=== PATIENT | female | born 1945 | race Caucasian/White ===

== ENCOUNTER → 2018-07-04 | Outpatient (CLI) | payer OTHER ==
[~2018-07-04] VITALS: Ht 144.8 cm; Wt 60.5 kg
[~2018-07-04] MED LIST: ALPR-412 PO; FLUT0.15 INTNAS; HYDR12.55 PO; MELO7.5T5 PO; MISCCAP80 PO; MULT-506 PO; PRLSR20 PO; SENNTAB23 PO
--- NOTE | 2018-07-04 13:29 | PAT Medication Instructions ---
Service Date Jul 04, 2018. Current Home Medication List Alprazolam (Alprazolam), 1 TAB PO TID PRN for RN Fluticasone Propionate (Nasal) (Flonase Allergy Relief), 2 SPRAYS INTNAS PRN Hydrochlorothiazide (Hydrochlorothiazide), 1 TAB PO QAM Meloxicam (Mobic), 15 MG PO QAM Multivitamin (Multivitamin), 1 TAB PO QAM Omeprazole (Prilosec), 20 MG PO QAM Probiotic Product (Probiotic), 1 TAB PO QAM Sennosides-Docusate Sodium (Stool Softener), 1 TAB PO QAM Medication Instructions For Your Scheduled Surgery -Instructions per surgeon: Meloxicam (Mobic), 15 MG PO QAM - Hold the following medications the morning of surgery: Hydrochlorothiazide (Hydrochlorothiazide), 1 TAB PO QAM Multivitamin (Multivitamin), 1 TAB PO QAM Probiotic Product (Probiotic), 1 TAB PO QAM Sennosides-Docusate Sodium (Stool Softener), 1 TAB PO QAM - Take the following medications the morning of surgery with a sip of water: Alprazolam (Alprazolam), 1 TAB PO TID PRN (if needed) Fluticasone Propionate (Nasal) (Flonase Allergy Relief), 2 SPRAYS INTNAS PRN ( if needed) Omeprazole (Prilosec), 20 MG PO QAM - Take the following medications as scheduled the night before surgery: Alprazolam (Alprazolam), 1 TAB PO TID PRN (if needed) Fluticasone Propionate (Nasal) (Flonase Allergy Relief), 2 SPRAYS INTNAS PRN ( if needed) If you have any questions please call us at [phone] or [phone] or [phone]
[2018-07-04 14:22] VITALS: Ht 144.8 cm; Wt 60.5 kg
[2018-07-04 14:34] LABS: BASO % 1.1 %; BASO ABS # 0.06 K/uL (0-0.2); EOS ABS # 0.16 K/uL (0-0.5); HEMATOCRIT 40.3 % (37-47); HEMOGLOBIN 13.5 g/dL (12.0-16.0); IG# 0.01 K/uL (0.00-0.02); LYMPH % 23.9 %; LYMPH ABS # 1.26 K/uL (1.2-3.4); MEAN CELL VOLUME 80.4 fL (80-100); MEAN CORPUSCULAR HEMOGLOBIN 26.9 pg (25-34); MEAN CORPUSCULAR HGB CONC 33.5 g/dl (32-36); MONO ABS # 0.58 K/uL (0.11-0.59); NEUT % 60.8 %; NEUT ABS # 3.21 K/uL (1.4-6.5); PLATELET COUNT 328 K/uL (130-400); RED CELL DISTRIBUTION WIDTH CV 16.1 % (11.5-14.5); RED CELL DISTRIBUTION WIDTH SD 46.9 fL (36.4-46.3); WHITE BLOOD COUNT 5.28 K/uL (4.8-10.8)
[2018-07-04 14:50] LABS: PTT PATIENT 26.4 SECONDS (21.0-31.0)
[2018-07-04 14:51] LABS: HEMOGLOBIN A1C 6.5 % (4.5-5.6)
[2018-07-04 14:56] LABS: ALBUMIN 3.8 gm/dl (3.4-5.0); CALCIUM 9.2 mg/dl (8.5-10.1); CREATININE 0.88 mg/dl (0.60-1.20); POTASSIUM 3.2 mmol/L (3.5-5.1)
--- NOTE | 2018-07-04 15:54 | DIAGNOSTIC IMAGING REPORT ---
CHEST 2 VIEWS ROUTINE CLINICAL HISTORY: pat preoperative evaluation COMPARISON STUDY: No previous studies for comparison. FINDINGS: The bones soft tissues and hemidiaphragms are normal. The cardiomediastinal silhouette is normal. The lungs are clear. The pulmonary vasculature is normal. IMPRESSION: Negative chest. The above report was generated using voice recognition software. It may contain grammatical, syntax or spelling errors. Electronically signed by: Sunny Latham M.D. 07/04/2018 3:53 PM Dictated Date/Time: 07/04/2018 3:52 PM
== END | disposition home or self-care (01) ==
LOC: C.LAB 08:00 → EDSTATUS 07-10 10:21
PROVIDERS: ATTEND Orthopaedic Surgery
DX: Z01.810 Encounter for preprocedural cardiovascular examination (principal); Z01.811 Encounter for preprocedural respiratory examination; Z01.812 Encounter for preprocedural laboratory examination

== ENCOUNTER 2018-07-16 07:31 | Inpatient (IN) | payer OTHER, MEDICARE ==
[2018-07-11 08:47] VITALS: BMI 29.0
--- NOTE | 2018-07-15 16:52 | History and Physical ---
History & Physical Date Jul 15, 2018. Chief Complaint Right hip pain and DJD History of Present Illness The patient is a 72 year old female with complaints of right hip pain and DJD who has failed conservative outpatient treatments which include anti- inflammatories, corticosteroid injections and a home walking exercise program. The patient's symptoms have progressed to the point where they are interfering with most daily activities and she no longer tolerate exercise programs. Pain and limited function has been made it difficult for her to perform her activities of daily living. They continue to have swelling and painful limited range of motion with crepitation. They have failed all forms of conservative treatments and are requesting to proceed with surgical replacement of the hip. Past Medical/Surgical History Past medical history Hypertension Vertigo GERD Anxiety Anemia Past surgical history Tubal ligation Allergies Coded Allergies: Diclofenac (Verified Allergy, Unknown, DIARRHEA, 07/16/18) Dog Dander (Verified Allergy, Unknown, CONGESTION, 07/16/18) Home Medications Scheduled Aspirin (Luciano Aspirin Ec Low Dose), 1 TAB PO DAILY Fluticasone Propionate (Nasal) (Flonase Allergy Relief), 2 SPRAYS INTNAS PRN Hydrochlorothiazide (Hydrochlorothiazide), 1 TAB PO QAM Multivitamin (Multivitamin), 1 TAB PO QAM Omeprazole (Prilosec), 20 MG PO QAM Scheduled PRN Alprazolam (Alprazolam), 1 TAB PO TID PRN for RN Sennosides-Docusate Sodium (Stool Softener), 1 TAB PO DAILY PRN for Constipation Miscellaneous Medications Acetaminophen (Tylenol), 650 MG PO Physical Examination Skin: warm/dry, no rash Eyes: normal inspection, EOMI, sclerae normal ENT: normal ENT inspection, pharynx normal Head: normocephalic, atraumatic Neck: supple, no adenopathy, trachea midline Respiratory/Chest: lungs clear, normal breath sounds, no respiratory distress Cardiovascular: regular rate, rhythm, no edema, no murmur Abdomen / GI: normal bowel sounds, non tender Back: normal inspection Extremities: + pertinent finding (Right lower extremity skin is clean dry and intact, painful limited range of motion of the right hip.) Neurologic/Psych: no motor/sensory deficits, alert, normal reflexes, oriented x 3 Diagnosis Severe right hip DJD Plan of Treatment I have indicated the patient for a right posterior total hip arthroplasty. The risks benefits and complications of the procedure include but not limited to infection, acute blood loss, blood clots, injury to surrounding nerves, vessels , bone and soft tissue, hip dislocation, leg length discrepancy, loss of function, failure of the prosthesis, need for additional surgery, cardiac and pulmonary events and . The patient wished to proceed with surgical replacement of her right hip and informed consent was obtained at this time. Appropriate medical clearances were obtained by her primary care provider. Postoperatively we will start the patient on aspirin 325 mg twice daily for DVT prophylaxis. Upon discharge from the hospital we will plan for the patient to go home with [facility]. Multiple views of the right hip demonstrate severe right hip DJD with complete loss of the joint space, presence of osteophytes, sclerosis and subchondral cyst.
[~2018-07-16] VITALS: Ht 144.8 cm; Wt 60.5 kg
[2018-07-16] VITALS (7 sets, daily range): BP systolic 131–173; BP diastolic 76–85; PULSE 85–96; TEMP 36.4–36.7; O2SAT 96–100; Ht 144.8 cm; Wt 60.5 kg
[~2018-07-16 07:31] MED LIST changes: +ACETAMINOPHEN 500 MG TAB PO SCH; +BUPIVACAINE 0.5 % 5 MG/1 ML PF 10ML VIAL ONE; +CEFAZOLIN 1000MG IV PUSH 7.5 ML IV SCH; +CeleBREX 200 MG CAP PO SCH; +DEXAMETHASONE 4 MG TAB PO SCH; +FAMOTIDINE 20 MG TAB PO SCH; +GABAPENTIN 300 MG CAP PO SCH; +LACTATED RINGER'S 1000ML 1,000 ML IV SCH; +LACTATED RINGER'S 1000ML 500 ML IV SCH; -MELO7.5T5 PO; +METOCLOPRAMIDE HCL 10 MG TAB PO SCH; -MISCCAP80 PO; +ROPIVACAINE 5MG/ML 30 ML 150 MG, BUPIVACAINE 0.5% MPF INJ 30 ML, EpINEphrine HCL INJ 0.... INFIL SCH; +TRANEXAMIC ACID INJ 1,000 MG x 1 Bag Intra-Op IV SCH
[2018-07-16] MEDS ORDERED: ASPI1TAB2 PO (08:25)
[2018-07-16] MEDS ORDERED: ACET-1311 PO (08:25)
[2018-07-16] MEDS ORDERED: HYDROmorphone INJ 2 MG/ML SYR/VIAL IV PRN (09:00)
[2018-07-16] MEDS ORDERED: ONDANSETRON INJ 2 MG/ML 2 ML VIAL IV PRN ×2 (09:00→14:45)
[2018-07-16] MEDS ORDERED: ATROPINE SULFATE 0.1 MG/ML 5ML SYR IV PRN (09:00)
[2018-07-16] MEDS ORDERED: PHENYLEPHRINE 100MCG/ML 5ML SYR IV PRN (09:00)
[2018-07-16] MEDS ORDERED: EpHEDrine SULFATE INJ 50 MG/ML AMP IV PRN (09:00)
[2018-07-16] MEDS ORDERED: MIDAZOLAM HCL 1 MG/ML 2ML VIAL ONE ×2 (10:35→13:15)
[2018-07-16] MEDS ORDERED: BACITRACIN 50000 UNIT VIAL ONE (11:36)
[2018-07-16] MEDS ORDERED: POVIDONE-IODINE OP SOLN 30 ML BTL ONE (11:36)
[2018-07-16] MEDS ORDERED: CeleBREX 200 MG CAP ONE (11:42)
[2018-07-16] MEDS ORDERED: ACETAMINOPHEN 500 MG TAB ONE (11:42)
[2018-07-16] MEDS ORDERED: METOCLOPRAMIDE HCL 10 MG TAB PO ONE (11:43)
[2018-07-16] MEDS ORDERED: CEFAZOLIN SOD 1000MG/7.5 ML IV PUSH ONE (11:43)
[2018-07-16] MEDS ORDERED: FAMOTIDINE 20 MG TAB ONE (11:43)
[2018-07-16] MEDS ORDERED: GABAPENTIN 300 MG CAP PO ONE (11:43)
[2018-07-16] MEDS ORDERED: DEXAMETHASONE 4 MG TAB ONE (11:43)
--- NOTE | 2018-07-16 11:43 | History & Physical Bridge Note ---
H&P Re-Evaluation Bridge Note: I have examined the patient, reviewed the History & Physical and in the interval since the performance of the History & Physical I have noted the following changes of clinical significance: No changes noted
[2018-07-16] MEDS ORDERED: ALPRAZOLAM 0.25 MG TAB PO PRN (11:45)
[2018-07-16] MEDS ORDERED: LIDOCAINE HCL 2% 2 ML VIAL (20MG/ML) ONE (12:49)
[2018-07-16] MEDS ORDERED: EpHEDrine SULFATE 50MG/5ML SYR ONE (12:49)
[2018-07-16] MEDS ORDERED: PROPOFOL IV EMULSION 10 MG/ML 20 ML VIAL ONE (12:49)
[2018-07-16] MEDS ORDERED: PHENYLEPHRINE 100MCG/ML 5ML SYR ONE (14:15)
--- NOTE | 2018-07-16 14:15 | [facility] Post Operative Brief Note ---
Immediate Operative Summary Operative Date Jul 16, 2018. Pre-Operative Diagnosis Severe Right Hip Degenerative Joint Disease Post-Operative Diagnosis Severe Right Hip Degenerative Joint Disease Procedure(s) Performed Right Total Hip Arthroplasty--Uncemented Surgeon Dr. Pittman Stacker Driver Surgeon(s) none Estimated Blood Loss 75 ml Findings Consistent with Post-Op Diagnosis Fluids (cc crystalloids) 1250 Specimens A. Right Femoral Head Drains None Anesthesia Type MAC Spinal Regional Complication(s) none Disposition Disposition: Recovery Room / PACU Overlapping Procedure I was present for: the critical portions of procedure. I was immediately available: during the entire case Back up surgeon: was not required during procedure
--- NOTE | 2018-07-16 14:39 | [facility] Operative Report ---
Operative Report Operative Date Jul 16, 2018. Pre-Operative Diagnosis Severe Right Hip Degenerative Joint Disease Post-Operative Diagnosis Severe Right Hip Degenerative Joint Disease Procedure(s) Performed Right Total Hip Arthroplasty--Uncemented Surgeon Dr. Pittman Iron Worker Surgeon(s) none Estimated Blood Loss 75 ml Findings See dictated op note Fluids 1250 Specimens A. Right Femoral Head Drains None Anesthesia Type MAC Spinal Regional Complication(s) none Disposition Recovery Room / PACU Indications The patient is a 72-year-old female who presents with severe progressive right hip DJD who has failed outpatient conservative treatments. I indicated the patient for a total hip replacement and the risks and benefits were explained in detail which included but not limited to infection, bleeding, blood clot, damage to surrounding bone, nerves, vessels, soft tissue, hip dislocation, failure of the prosthesis, leg length discrepancy, need for additional surgery and . The patient agreed to proceed with replacement of the hip and informed consent was obtained. Appropriate clearances were obtained. Description of Procedure Following induction of adequate spinal anesthesia, the patient was transferred to the OR table and placed in lateral decubitus position with left hip down. The right hip was prepped and draped in the typical sterile fashion and a posterolateral/Trey-Langenbeck incision was made. Subcutaneous tissue was sharply dissected. Electrocautery was utilized for hemostasis. The fascia was incised throughout the length of the wound and retracted with the Charnley retractor. The bursa was taken down and the short external rotators were identified. The piriformis was tagged with #1 Vicryl. The short external rotators and capsule were divided from the posterior aspect of the femur using electrocautery. The posterior capsule was tagged with #1 Vicryl. Both external rotators and posterior capsule were swept posterior and protected, along with protecting the sciatic nerve. The hip was dislocated by flexion and internally rotation in a controlled manner and exposure of the femoral neck was gained with an old-style Hohmann and a blunt cobra retractor. A femoral cutting guide was utilized for making the appropriate level femoral neck cut with reciprocating saw. The femoral head was removed, measured and reserved on the back table. Next, attention was turned to the acetabulum. A posterior and anterior offset retractor was placed to gain adequate exposure. Acetabular labrum as well as posterior capsule elements were removed using electrocautery and forceps. Fovea centralis was cleared of all soft tissue. Sequential reaming was performed starting at 42 mm and carried up to a 44 mm and decision was made to proceed with impaction of a 46 mm trabecular metal cup. This was impacted and held using a single 40 mm bone screw. The trial acetabular liner was placed at this time. Next, attention was turned to the proximal femur where a Bovie and pickup was used to further clear short external rotators from their insertion on the femur. Box osteotome and canal finder was used to gain access to the femoral canal and the lateral reamer on power was used to further open the proximal lateral canal. Sequentially rasping was carried up to a 5 which gave good fit and fill of the proximal femur. A trial reduction was carried out with a high offset femoral neck component a 32-3.5 mm femoral head. The trial reduction was stable in all degrees of rotation with no [id number] impingement. The hip was dislocated, trial components were removed and access to the acetabulum was re-established. The trial liner was removed and the cup was irrigated to ensure all debris was removed. The final acetabular liner was inserted and properly seated in the cup. Access to the femur was once more gained and the size 5 femoral stem with high offset was impacted into position. The hip was once more assessed with the 32-3.5 mm femoral head. Stability was accessed and found to be excellent with equal leg lengths. The hip was dislocated for the last time and the final 32-3.5 ceramic femoral head was impacted in place and the hip was reduced. Range of motion was checked once again and found to be stable. The wound was copiously irrigated with sterile saline solution. The freddie-incisional soft tissue was injected utilizing [place] ortho mix which includes a combination of Ropivicaine 0.5% 150mg, Bupivicaine 0.5%/Epinephrine 1:200,000 30ml, Toradol 30mg, Dexamethasone 4mg, Ketamine 10mg, Clonidine 100mcg and NSS 30ml Orthomix solution. The piriformis, external rotators and capsule were repaired to the greater trochanter through bone tunnels using #5 FiberWire. The fascia was closed using #1 Vicryl, subcutaneous tissue was closed using 2-0 Vicryl, and skin was closed with 3-0 V-lock suture and Dermabond Prineo. Sterile dressings were applied which included chandni, 4x4s and foam tape. The patient tolerated the procedure well and was transported to PACU in stable condition. I attest to the content of the Intraoperative Record and any orders documented therein. Any exceptions are noted below.
[2018-07-16] MEDS ORDERED: MoRPHine SULFATE 2 MG/ML CARP IV PRN (14:45)
--- NOTE | 2018-07-16 15:00 | Anesthesiology Progress Note ---
Anesthesia Post Op Note Date & Time Jul 16, 2018 at 14:59 Vital Signs Pain Intensity: 0 Vital Signs Past 12 Hours Date Time Temp Pulse Resp B/P (MAP) Pulse Ox O2 Delivery O2 Flow Rate FiO2 07/16/18 14:55 79 15 137/72 99 Nasal Cannula 2 07/16/18 14:45 36.5 88 17 127/82 99 Nasal Cannula 2 07/16/18 14:35 84 14 127/72 99 Nasal Cannula 2 07/16/18 14:25 89 16 117/62 99 Oxymask 8 07/16/18 14:17 36.3 75 16 125/69 98 Oxymask 8 07/16/18 08:28 36.6 91 20 173/83 98 Room Air Notes Mental Status: alert / awake / arousable, participated in evaluation Pt Amnestic to Procedure: Yes Nausea / Vomiting: adequately controlled Pain: adequately controlled Airway Patency, RR, SpO2: stable & adequate BP & HR: stable & adequate Hydration State: stable & adequate Anesthetic Complications: no major complications apparent
--- NOTE | 2018-07-16 15:01 | DIAGNOSTIC IMAGING REPORT ---
R PELVIS/UNILATERAL HIP 1 VIEW HISTORY: 72 years-old Female IN PACU - A/P PELVIS and LATERAL HIP INCLUDING ALL OF IMPLANT right hip total joint arthroplasty. History of degenerative joint disease. COMPARISON: None available TECHNIQUE: AP view of the pelvis with crosstable lateral view of the right hip FINDINGS: Bones appear mildly demineralized. Moderate left hip posterior arthritis. No acute fracture or dislocation. Right hip total joint arthroplasty with satisfactory alignment. No periprosthetic fracture. Postsurgical soft tissue swelling with deep tissue air about the right hip. No retained radiopaque foreign body identified. Phleboliths of the pelvis. IMPRESSION: Right hip total joint arthroplasty with satisfactory alignment. The above report was generated using voice recognition software. It may contain grammatical, syntax or spelling errors. Electronically signed by: Emiliano Muñiz M.D. 07/16/2018 2:59 PM Dictated Date/Time: 07/16/2018 2:58 PM
--- NOTE | 2018-07-16 15:21 | Orthopedic Progress Note ---
Orthopedic Progress Note Date of Service Jul 16, 2018. Subjective Additional Notes: Post-operative progress note Patient seen in PACU, comfortable, no acute issues, spinal anesthesia beginning to wear off. Objective NAD, AOx3 RLE: NVSI +EHL/FHL, 3/5 MS, limited exam, spinal anesthesia slowly wearing off but not completely worn off. + 2 DP pulse, compartments soft NT, dressing CDI Date Time Temp Pulse Resp B/P (MAP) Pulse Ox O2 Delivery O2 Flow Rate FiO2 07/16/18 14:55 79 15 137/72 99 Nasal Cannula 2 07/16/18 14:45 36.5 88 17 127/82 99 Nasal Cannula 2 07/16/18 14:35 84 14 127/72 99 Nasal Cannula 2 07/16/18 14:25 89 16 117/62 99 Oxymask 8 07/16/18 14:17 36.3 75 16 125/69 98 Oxymask 8 07/16/18 08:28 36.6 91 20 173/83 98 Room Air Assessment & Plan Assessment: s/p Right posterior BELA Plan: -ancef x 24 -DVT PPX: ASA BID -WBAT RLE -PT/OT -PO XR demonstrates well aligned well fixed total hip prothesis, without fracture or dislocation -am labs -DC planning
[2018-07-16] MEDS: TRANEXAMIC ACID INJ 1,000 MG x 2 Bags IV SCH ×4 (16:24→16:26)
[2018-07-16] MEDS: CeleBREX 200 MG CAP PO SCH (20:44)
[2018-07-16] MEDS: DOCUSATE SODIUM 100 MG CAP PO SCH (20:44)
[2018-07-16] MEDS: SODIUM CHLORIDE 0.9% 1000ML 1,000 ML IV SCH (20:46)
[2018-07-16] MEDS: CEFAZOLIN IV 1,000 MG in SYRINGE 0 ML IV SCH (20:46)
[2018-07-16] MEDS: ACETAMINOPHEN 500 MG TAB PO SCH (20:54)
[2018-07-16] MEDS ORDERED: SENNA 8.6 MG TAB PO SCH (21:00)
[2018-07-16] MEDS: OXYCODONE HCL IR 5 MG TAB (IMMEDIATE RELEASE) PO PRN (22:45)
[2018-07-17 03:44] VITALS: BP 136/85; PULSE 87; TEMP 36.3; O2SAT 97
[2018-07-17] MEDS: CEFAZOLIN IV 1,000 MG in SYRINGE 0 ML IV SCH (04:46)
[2018-07-17] MEDS: SODIUM CHLORIDE 0.9% 1000ML 1,000 ML IV SCH ×2 (05:44→12:00)
[2018-07-17] MEDS: ACETAMINOPHEN 500 MG TAB PO SCH ×2 (05:45→13:29)
[2018-07-17 07:15] VITALS: BP 140/67; PULSE 73; TEMP 36.7; O2SAT 99
[2018-07-17 07:19] LABS: BASO % 0.1 %; BASO ABS # 0.01 K/uL (0-0.2); HEMATOCRIT 36.1 % (37-47); HEMOGLOBIN 11.7 g/dL (12.0-16.0); IG# 0.05 K/uL (0.00-0.02); LYMPH % 4.7 %; LYMPH ABS # 0.69 K/uL (1.2-3.4); MEAN CELL VOLUME 82.2 fL (80-100); MEAN CORPUSCULAR HEMOGLOBIN 26.7 pg (25-34); MEAN CORPUSCULAR HGB CONC 32.4 g/dl (32-36); MEAN PLATELET VOLUME 9.9 fL (7.4-10.4); MONO % 9.4 %; MONO ABS # 1.36 K/uL (0.11-0.59); NEUT % 85.5 %; NEUT ABS # 12.42 K/uL (1.4-6.5); PLATELET COUNT 249 K/uL (130-400); RED CELL DISTRIBUTION WIDTH CV 16.1 % (11.5-14.5); RED CELL DISTRIBUTION WIDTH SD 48.2 fL (36.4-46.3); WHITE BLOOD COUNT 14.53 K/uL (4.8-10.8)
--- NOTE | 2018-07-17 07:28 | Orthopedic Progress Note ---
Orthopedic Progress Note Date of Service Jul 17, 2018. Subjective Post OP Day: 1 Reports: feeling well, Denies: chest pain, SOB, nausea / vomiting, light headedness, calf pain Additional Notes: Mild incisional pain this AM. No other complaints. Objective calves soft nontender, N/V intact, hip located, dressing C/D/I, A&O x3, toes mobile Date Time Temp Pulse Resp B/P (MAP) Pulse Ox O2 Delivery O2 Flow Rate FiO2 07/17/18 03:44 36.3 87 17 136/85 (102) 97 Room Air 07/16/18 23:48 36.7 93 16 142/85 (104) 98 Room Air 07/16/18 23:40 Room Air 07/16/18 18:54 36.5 96 16 143/84 (103) 96 Room Air 07/16/18 17:23 36.5 85 16 165/83 (110) 100 Room Air 07/16/18 16:27 36.5 90 16 144/84 (104) 100 07/16/18 16:05 Room Air 07/16/18 15:55 36.4 86 16 150/83 (105) 100 Nasal Cannula 2.0 07/16/18 15:25 98 Nasal Cannula 2.0 07/16/18 15:25 Nasal Cannula 2.0 07/16/18 15:25 36.4 92 18 131/76 (94) 98 Nasal Cannula 2.0 07/16/18 15:05 87 15 139/73 99 Nasal Cannula 2 07/16/18 14:55 79 15 137/72 99 Nasal Cannula 2 07/16/18 14:45 36.5 88 17 127/82 99 Nasal Cannula 2 07/16/18 14:35 84 14 127/72 99 Nasal Cannula 2 07/16/18 14:25 89 16 117/62 99 Oxymask 8 07/16/18 14:17 36.3 75 16 125/69 98 Oxymask 8 07/16/18 08:28 36.6 91 20 173/83 98 Room Air Laboratory Results 24 Hours: Test 07/17/18 06:58 White Blood Count 14.53 K/uL Red Blood Count 4.39 M/uL Hemoglobin 11.7 g/dL Hematocrit 36.1 % Mean Corpuscular Volume 82.2 fL Mean Corpuscular Hemoglobin 26.7 pg Mean Corpuscular Hemoglobin Concent 32.4 g/dl Platelet Count 249 K/uL Mean Platelet Volume 9.9 fL Neutrophils (%) (Auto) 85.5 % Lymphocytes (%) (Auto) 4.7 % Monocytes (%) (Auto) 9.4 % Eosinophils (%) (Auto) 0.0 % Basophils (%) (Auto) 0.1 % Neutrophils # (Auto) 12.42 K/uL Lymphocytes # (Auto) 0.69 K/uL Monocytes # (Auto) 1.36 K/uL Eosinophils # (Auto) 0.00 K/uL Basophils # (Auto) 0.01 K/uL Assessment & Plan Assessment: POD 1 s/p Right posterior BELA Plan: -ancef x 24 -DVT PPX: ASA BID -WBAT RLE -PT/O -am labs -DC planning - services Inhouse Planning Pain Management: Celebrex, PO Tylenol, Oxy IR DVT Prophylaxis: TEDs, SCDs, ASA Discharge Planning Discharge Planning: home with home health
[2018-07-17 07:54] LABS: CREATININE 0.61 mg/dl (0.60-1.20)
[2018-07-17 07:55] LABS: CALCIUM 8.9 mg/dl (8.5-10.1); POTASSIUM 4.3 mmol/L (3.5-5.1)
[2018-07-17] MEDS ORDERED: ASPIRIN 325 MG ECTAB PO SCH (08:00)
[2018-07-17] MEDS: DOCUSATE SODIUM 100 MG CAP PO SCH (08:16)
[2018-07-17] MEDS: CeleBREX 200 MG CAP PO SCH (08:16)
[2018-07-17] MEDS ORDERED: HYDROCHLOROTHIAZIDE 25 MG TAB PO SCH (09:00)
[2018-07-17] MEDS ORDERED: PANTOprazole SOD 40 MG TAB PO SCH (09:00)
[2018-07-17] MEDS ORDERED: MULTIVITAMIN TAB PO SCH (09:00)
[2018-07-17] MEDS: OXYCODONE HCL IR 5 MG TAB (IMMEDIATE RELEASE) PO PRN (12:00)
[2018-07-17 12:10] VITALS: BP 120/65; PULSE 84; TEMP 36.6; O2SAT 98
[2018-07-17] MEDS ORDERED: CLB200 PO (15:17)
[2018-07-17] MEDS ORDERED: ACET-24 PO (15:17)
[2018-07-17] MEDS ORDERED: ASPEC325 PO (15:17)
[2018-07-17] MEDS ORDERED: RXC5 PO (15:17)
--- NOTE | 2018-07-17 15:23 | Discharge Instructions ---
Discharge Instructions Date of Service Jul 17, 2018. Admission Reason for Admission: Right Hip Osteoarthritis Discharge Discharge Diagnosis / Problem: Right Hip Djd Discharge Goals Goal(s): Decrease discomfort, Improve function Activity Recommendations Activity Limitations: per Instructions/Follow-up section Weightbearing Status: Right weightbearing (as tolerated) . Instructions / Follow-Up Instructions / Follow-Up ACTIVITY RECOMMENDATIONS: SELF CARE INSTRUCTIONS AFTER TOTAL HIP REPLACEMENT Until the incision and soft tissues around your hip have healed, there is a possibility that the hip prosthesis could dislocate. A. Observe the following precautions to prevent dislocation: 1. Don't bend your hip greater than 90 degrees. 2. Avoid crossing your legs or ankles while standing or lying. 3. Sit with your feet placed 6 inches apart. 4. When sitting, keep your knees below your hips. Sit on a firm surface, avoid deep, soft chairs and couches. Use an elevated toilet seat in the bathroom. 5. Don't bend over at the waist. Use a long handled shoehorn and a sock aid to help you put on your shoes and socks. A digital marketing executive can help you strip picker objects that are too high or too low to reach. 6. Keep car riding to a minimum for at least one month after surgery. B. Your balance may be shaky for a while. Use crutches or a walker until directed by your doctor. C. Use hand rails when walking on stairs. D. Wear low heeled shoes with non-slip soles. E. Be sure that your floors are free of things that could trip you - throw rugs , electrical cords, small objects. Avoid wet and waxed floors, especially with crutches and canes. F. Try to walk several times a day with rest periods between. G. Continue with all the exercises taught to you in the hospital. Again, make walking a part of your daily routine. SPECIAL CARE INSTRUCTIONS: VERY IMPORTANT TO READ AND REVIEW A. You may still be at risk for phlebitis and blood clots. 1. Wear surgical stockings (RICKY hose) for 2 weeks after surgery to improve circulation and reduce swelling. 2. Take Aspirin 81mg twice daily for 4 weeks or as directed by your doctor. This is your blood thinner. 3. High risk patients may be prescribed a stronger blood thinner if necessary. 4. If you are on Coumadin normally, your family doctor/front desk manager should monitor your blood work. Expect a phone call the day of or the day after bloodwork is drawn to adjust your dosage. B. You must take antibiotics before having dental work, bladder, bowel and other surgery. Your doctor will provide you with a permanent card to carry describing precautions. C. Call [facility] if you have a fever, redness or swelling around the incision, cloudy drainage from incision, or sudden increase in pain in your hip, not relieved by your regular pain medication. D. Please call the office at if you have any concerns or questions about your operation or recovery. * YOU MAY SHOWER, NO TUB BATHS UNTIL CLEARED BY YOUR DOCTOR. * WEAR RICKY HOSE 20 HOURS PER DAY FOR 2 WEEKS. * YOU SHOULD USE A WALKER OR CRUTCHES FOR 2-4 WEEKS. THIS WILL HELP PREVENT STRAIN ON YOUR HIP MUSCLE AND ALLOW IT TO HEAL PROPERLY. YOU MAY WEAN TO A CANE TOLERATED. * MOST PATIENTS WILL HAVE HOME NURSING FOR THERAPY. IF YOU DECIDE TO DO OUTPATIENT PHYSICAL THERAPY, PLEASE SCHEDULE THIS 3 TIMES PER WEEK. * DERMABOND Prineo- This is a mesh tape dressing that is covered with glue. It should remain in place until the incision is properly healed, usually 10-14 days. This dressing is designed to naturally slough off. You may trim the excess mesh tape as it peels off. Incision may be briefly wet in a shower. Dry immediately by blotting with a clean, dry towel. Do not bath or swim until instructed by your doctor. Do not scratch, rub, or pick at the dressing. Do not apply any topical ointments or lotions until dressing is completely removed and/or instructed by your doctor. There may be a small piece of suture material at one end of your incision. Do not pull or trim this. If it is bothersome or catching on clothing, you may cover it with a band-aid. . FOLLOW UP VISIT: If appointment is not already scheduled: Please call [facility] to make a follow-up appointment for 2 weeks after your surgery at . Current Hospital Diet Patient's current hospital diet: AHA Diet (Heart Healthy) Discharge Diet Recommended Diet: AHA Diet (Heart Healthy) Procedures Procedures Performed: Right Total Hip Arthroplasty--Uncemented Pending Studies Studies pending at discharge: no Laboratory Results Hemoglobin A1c Test 07/04/18 14:05 Range/Units Estimated Average Glucose 140 mg/dl Hemoglobin A1c 6.5 H 4.5-5.6 % Medical Emergencies . Who to Call and When: Medical Emergencies: If at any time you feel your situation is an emergency, please call 911 immediately. . Non-Emergent Contact Non-Emergency issues call your: Surgeon Call Non-Emergent contact if: temperature is above 101.5, your pain is not controlled, your pain is worsening, wound has increased drainage, wound has increased redness . "Provider Documentation" section prepared by Randall Khoury. . [place] Drug Monitoring Program Search Results: patient reviewed within database, see additional documentation Drug Monitoring Findings: Pt receiving regular RX for Alprazolam used in a prn fashion
[2018-07-17 16:03] VITALS: BP 120/65; PULSE 84; TEMP 36.6; O2SAT 98
--- NOTE | 2018-07-18 12:40 | DISCHARGE SUMMARY ---
DISCHARGE DIAGNOSIS: Degenerative joint disease, right hip. SECONDARY DIAGNOSES: Hypertension, vertigo, gastroesophageal reflux disease, anxiety, anemia. CONSULTS: None. COMPLICATIONS: None. PROCEDURES: Right total hip arthroplasty performed by Dr. Pittman on 07/16/2018. BRIEF HISTORY: As dictated in the history and physical. HOSPITAL SUMMARY: The patient was admitted on the above-noted date and had the above-noted surgery performed, which she tolerated well. On her first postoperative day, she was feeling well and had no complaints. She had mild incisional discomfort and was remaining stable. Calves were soft and nontender. Neurovascularly intact. Hip was located. Dressings clean, dry and intact. Toes were mobile. Vital signs stable and she is afebrile. Hemoglobin was 11.7 and she was started on physical therapy protocol and continued on DVT prophylaxis and pain management. Plans were for her to go home with home health services upon discharge. She was progressing with her physical therapy, ambulating 150 feet. She had been seen by Dr. Pittman and it was felt that she was stable for discharge. For further review, please see chart. LABORATORY DATA: As per chart. DISCHARGE INSTRUCTIONS: The patient was discharged home on 07/17/2018. Diet: Heart healthy. Activity: Weightbearing as tolerated, right lower extremity. Follow [facility] instruction sheets and special care instructions as noted. Follow up with Dr. Pittman in 2 weeks. The patient to call for appointment if one has not been made for you. DISCHARGE MEDICATIONS: Acetaminophen 1000 mg p.o. q. 8 hours for 14 days, aspirin 325 mg p.o. b.i.d. for 30 days, Celebrex 200 mg p.o. b.i.d., oxycodone 5 mg p.o. q. 4 hours p.r.n. Resume home meds as listed. Stop taking your regular Tylenol dosage and stop taking your previous aspirin tablet.
== END 2018-07-17 16:46 | disposition home health service (06) | DRG 470 ==
LOC: C.ACU 07:31 → C.3E 14:37 → ENRESERV 15:05
PROVIDERS: ADMIT Orthopaedic Surgery; ATTEND Orthopaedic Surgery
PROC: 0SR903A Replacement of Right Hip Joint with Ceramic Synthetic Substitute, Uncemented, Open Approach (ICD-10-PCS; principal; 2018-07-16 10:00)
DX: M16.11 Unilateral primary osteoarthritis, right hip (principal); I10 Essential (primary) hypertension; K21.9 Gastro-esophageal reflux disease without esophagitis; Z79.82 Long term (current) use of aspirin; Z79.899 Other long term (current) drug therapy; Z88.6 Allergy status to analgesic agent